=== PATIENT | female | born 1995 | race African-American/Black ===

== ENCOUNTER 2020-11-22 12:11 | Outpatient (CLI) | payer OTHER | END 2020-11-22 12:12 | disposition home or self-care (01) | LOC: BURRAD 12:11 | PROVIDERS: ATTEND Family Medicine | DX: M54.2 Cervicalgia (principal); M79.641 Pain in right hand; M79.642 Pain in left hand; M79.10 Myalgia, unspecified site | CPT/HCPCS: 72040 ==